=== PATIENT | female | born 1940 | race Caucasian/White ===

== ENCOUNTER 2016-08-05 06:56 | Emergency (ER) | payer MEDICARE, OTHER ==
[~2016-08-05 06:56] MED LIST: PANTOPRAZOLE SO40 MG PO
[2016-08-05 07:30] LABS: HEMOGLOBIN 13.3 gm/dl (12.3-15.3); RED BLOOD COUNT 4.22 M/UL (4.00-5.10); WHITE BLOOD COUNT 6.7 K/UL (4.5-11.0)
[2016-08-05 07:48] LABS: BUN/CREATININE RATIO 23 (0-10)
== END 2016-08-05 13:12 | disposition home or self-care (01) ==
LOC: ER1 06:56
PROVIDERS: Emergency Medicine
DX: R07.9 Chest pain, unspecified (principal); I48.91 Unspecified atrial fibrillation; E11.9 Type 2 diabetes mellitus without complications; I10 Essential (primary) hypertension; R79.1 Abnormal coagulation profile; E78.5 Hyperlipidemia, unspecified
CPT/HCPCS: 36415; 71010; 80053; 82550; 82553; 83874; 84484; 85025; 85610; 93005; 99285

== ENCOUNTER 2020-07-05 21:46 | Emergency (ER) | payer MEDICARE, OTHER ==
[~2020-07-05 21:46] MED LIST changes: +ALL DAY ALLERGY10 M2 PO; +AMLODIPINE BES2.5 MG PO; +ANTIVERT 25MG T25 MG PO; +COUMADIN4 MG PO; +EFFEXOR XR75 MG PO; +GINKGO BILOBA120 MG PO; +GLUCOPHAGE 500500 MG PO; +LEVAQUIN500 MG PO; +LIPITOR TAB 2020 MG PO; +LOPRESSOR50 MG PO; +MICROZIDE12.5 MG PO; +NITROSTAT0.4 MG SL; +OMNICEF 300 MG300 MG PO; +VITAMIN D-40400 UNIT PO
[2020-07-06] MEDS ORDERED: HYDROCODONE-AC1 EACH PO (03:22)
[2020-07-06] MEDS ORDERED: MACROBID 100 M100 MG PO (03:29)
== END 2020-07-06 03:39 | disposition home or self-care (01) ==
LOC: ER1 21:46
DX: S32.029A Unspecified fracture of second lumbar vertebra, initial encounter for closed fracture (principal); M25.511 Pain in right shoulder; N39.0 Urinary tract infection, site not specified; I11.9 Hypertensive heart disease without heart failure; E11.9 Type 2 diabetes mellitus without complications; W17.89XA Other fall from one level to another, initial encounter
CPT/HCPCS: 72131; 73030; 81001; 99284

== ENCOUNTER 2020-09-06 00:37 | Emergency (ER) | payer MEDICARE, OTHER ==
[~2020-09-06 00:37] MED LIST changes: +HYDROCODONE-AC1 EACH PO; +MACROBID 100 M100 MG PO
[2020-09-06] MEDS ORDERED: OMNICEF 300 MG300 MG PO (04:49)
== END 2020-09-06 05:06 | disposition home or self-care (01) ==
LOC: ER1 00:37
DX: S01.311A Laceration without foreign body of right ear, initial encounter (principal); I25.10 Atherosclerotic heart disease of native coronary artery without angina pectoris; I10 Essential (primary) hypertension; E11.9 Type 2 diabetes mellitus without complications; Z23 Encounter for immunization; W19.XXXA Unspecified fall, initial encounter; Y92.009 Unspecified place in unspecified non-institutional (private) residence as the place of occurrence of the external cause
CPT/HCPCS: 12014; 70450; 81001; 87077; 87086; 87186; 90471; 90715; 99284

== ENCOUNTER 2021-08-16 20:02 | Inpatient (IN) | payer MEDICARE, OTHER ==
[~2021-08-16] VITALS: Ht 162.6 cm; Wt 79.8 kg
[~2021-08-16 20:02] MED LIST changes: +LIPITOR TAB 1010 MG PO; -LIPITOR TAB 2020 MG PO; +LOPRESSOR100 MG PO; -LOPRESSOR50 MG PO; -PANTOPRAZOLE SO40 MG PO; +PROTONIX40 MG PO
[2021-08-16 20:53] LABS: HEMOGLOBIN 12.9 gm/dl (12.3-15.3); RED BLOOD COUNT 3.96 M/UL (4.00-5.10); WHITE BLOOD COUNT 9.8 K/UL (4.5-11.0)
[2021-08-16 21:12] LABS: BUN/CREATININE RATIO 29 (0-10)
[2021-08-17 03:20] LABS: HEMOGLOBIN 12.7 gm/dl (12.3-15.3); RED BLOOD COUNT 3.95 M/UL (4.00-5.10); WHITE BLOOD COUNT 12.3 K/UL (4.5-11.0)
[2021-08-17 03:52] LABS: BUN/CREATININE RATIO 31 (0-10)
[2021-08-17] MEDS ORDERED: ELIQUIS5 MG PO (13:06)
[2021-08-17] MEDS ORDERED: ZINC OXIDE60 GM TOP (13:07)
[2021-08-17] MEDS ORDERED: DOCUSATE SODIU100 M1 PO (13:08)
[2021-08-17] MEDS ORDERED: ACETAMINOPHEN500 MG PO (13:08)
[2021-08-17] MEDS ORDERED: DIVALPROEX SOD125 MG PO ×2 (13:10)
[2021-08-17] MEDS ORDERED: NAMENDA10 MG PO (13:11)
[2021-08-17] MEDS ORDERED: CLOTRIMAZOLE-BE30 ML TP (13:13)
[2021-08-17] MEDS ORDERED: SENNA8.6 MG PO (13:13)
[2021-08-17] MEDS ORDERED: FERREX 150150 MG PO (13:14)
[2021-08-17] MEDS ORDERED: ARTHRITIS PAIN150 GM TP (13:15)
[2021-08-17] MEDS ORDERED: SODIUM CHLORIDE15 ML INH (13:16)
[2021-08-17] MEDS ORDERED: PROBIOTIC250 MG PO (13:17)
[2021-08-18 06:01] LABS: HEMOGLOBIN 13.9 gm/dl (12.3-15.3); RED BLOOD COUNT 4.27 M/UL (4.00-5.10); WHITE BLOOD COUNT 13.2 K/UL (4.5-11.0)
[2021-08-18 06:07] LABS: BUN/CREATININE RATIO 26 (0-10)
[2021-08-19 06:52] LABS: BUN/CREATININE RATIO 25 (0-10)
[2021-08-19 06:58] LABS: HEMOGLOBIN 13.2 gm/dl (12.3-15.3); RED BLOOD COUNT 4.06 M/UL (4.00-5.10); WHITE BLOOD COUNT 11.9 K/UL (4.5-11.0)
[2021-08-21 06:44] LABS: HEMOGLOBIN 10.2 gm/dl (12.3-15.3); RED BLOOD COUNT 3.15 M/UL (4.00-5.10); WHITE BLOOD COUNT 7.1 K/UL (4.5-11.0)
[2021-08-21 07:05] LABS: BUN/CREATININE RATIO 33 (0-10)
[2021-08-21] MEDS ORDERED: HYDROCODON-ACE1 EAC4 PO (11:39)
== END 2021-08-21 15:15 | DRG 522 ==
LOC: ER1 20:02 → CDU 21:53 → M/S 21:53
PROVIDERS: Internal Medicine; Orthopaedic Surgery; Preventive Medicine Occupational Medicine; ADMIT Internal Medicine
PROC: 0SR90J9 Replacement of Right Hip Joint with Synthetic Substitute, Cemented, Open Approach (ICD-10-PCS; principal; 2021-08-18 14:30)
DX: S72.001A Fracture of unspecified part of neck of right femur, initial encounter for closed fracture (principal); I48.20 Chronic atrial fibrillation, unspecified; F01.50 Vascular dementia, unspecified severity, without behavioral disturbance, psychotic disturbance, mood disturbance, and anxiety; E11.9 Type 2 diabetes mellitus without complications; W01.0XXA Fall on same level from slipping, tripping and stumbling without subsequent striking against object, initial encounter; E78.5 Hyperlipidemia, unspecified; Z66 Do not resuscitate; Z20.822 Contact with and (suspected) exposure to COVID-19; I10 Essential (primary) hypertension; K21.9 Gastro-esophageal reflux disease without esophagitis; F41.9 Anxiety disorder, unspecified; Z86.16 Personal history of COVID-19; Z86.73 Personal history of transient ischemic attack (TIA), and cerebral infarction without residual deficits; Z90.49 Acquired absence of other specified parts of digestive tract; Z90.710 Acquired absence of both cervix and uterus; Z98.890 Other specified postprocedural states; Z88.5 Allergy status to narcotic agent; Z88.8 Allergy status to other drugs, medicaments and biological substances; Z79.01 Long term (current) use of anticoagulants
CPT/HCPCS: 36415; 71045; 72170; 73030; 73502; 73552; 80048; 80053; 82962; 85025; 85027; 85610; 85730; 86850; 86900; 86901; 93005; 94760; 96374; 96376; 97110-GP-CQ; 97162; 97166; 97530-GP-CQ; 99285; C1776; J0690; J1100; J1170; J2001; J2270; J2370; J2405; J2704; J3010; J7120; U0002